=== PATIENT | female | born 1985 | race Caucasian/White ===

== ENCOUNTER 2018-11-22 14:09 | Inpatient (IN) | payer BC ==
[2018-11-22 16:49] LABS: Protime INR 1.31
[2018-11-22 16:58] LABS: Absolute Lymphocytes (CBC) 1.3 K/uL (0.7-4.9); Basophils % 0.4 % (0-1.3); Hematocrit 36.2 % (36.0-45.0); Lymphocytes % 8.5 % (15.3-44.8); MPV 7.6 fL (7.6-11.3); RBC Red Blood Cell Count 3.99 M/uL (3.86-4.86)
[2018-11-22 17:00] LABS: BUN Blood Urea Nitrogen 13 mg/dL (7-18); Bicarbonate 26 mmol/L (21-32); Glucose Level 93 mg/dL (74-106); Potassium 4.1 mmol/L (3.5-5.1); Sodium Level 139 mmol/L (136-145)
--- NOTE | 2018-11-22 17:48 | RAD REPORT ---
EXAM DESCRIPTION: CT - Abdomen Pelvis Wo Contrast - 11/22/2018 5:37 pm CLINICAL HISTORY: Abdominal pain. ABD PAIN COMPARISON: No comparisons TECHNIQUE: CT imaging of the abdomen and pelvis was performed without contrast. Solid organ, bowel a nd vascular assessment is limited due to lack of IV and oral contrast. All CT scans are performed using dose optimization technique as appropriate and may include automated exposure control or mA/KV adjustment according to patient size. FINDINGS: Calcified granuloma is present in the left lung base posteriorly. The liver, spleen, pancreas, adrenal glands and kidneys are within normal limits for a limited non-co ntrast examination. No bowel obstruction, free air, free fluid or abscess. Postsurgical changes are present in the anteri or floor abdominopelvic soft tissues. The appendix is not identified as a discrete structure, however , no secondary findings of appendicitis are identified. 6 cm left adnexal cyst is suspected.No free pelvic fluid. IMPRESSION: 6 cm left adnexal cyst noted. Evidence recent postoperative changes in the inferior anterior pelvic soft tissues. A limited non-contrast examination was performed as detailed.
[2018-11-22] MEDS ORDERED: HYDROCODONE/APAP 10/325 TAB ONE (17:59)
--- NOTE | 2018-11-22 18:29 | ER ---
Nurse's Notes [facility] Name: Ailyn Burgos Age: 32 yrs Sex: Female : 1985 Arrival Date: 11/22/2018 Time: 14:11 Bed 23 Private MD: Diagnosis: Post-op incsional pain, incisional abscess, abdominal pain Presentation: 11/22 14:15 Presenting complaint: Patient states: pt recently had surgery for endometriosis and sv started bleeding from site or vaginal area. Transition of care: patient was not received from another setting of care. Onset of symptoms was November 22, 2018. Care prior to arrival: None. 14:15 Method Of Arrival: Wheelchair sv 14:15 Acuity: FRANKIE 2 sv 14:34 Risk Assessment: Do you want to hurt yourself or someone else? Patient reports no tw2 desire to harm self or others. Initial Sepsis Screen: Does the patient meet any 2 criteria? HR > 90 bpm. Does the patient have a suspected source of infection? Yes: Skin breakdown/wound. 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 - Social history:: Smoking status: . - Ebola Screening: : Patient denies travel to an Ebola-affected area in the 21 days before illness onset. Screenin:34 Abuse screen: Denies threats or abuse. Nutritional screening: No deficits noted. tw2 Tuberculosis screening: No symptoms or risk factors identified. Fall Risk None identified. Assessment: 14:17 General: Appears uncomfortable, Behavior is calm, cooperative, appropriate for age. tw2 Pain: Complains of pain in umbilical area, right upper quadrant and left upper quadrant. Neuro: Level of Consciousness is awake, alert, obeys commands, Oriented to person, place, time, situation. Cardiovascular: Heart tones S1 S2 Patient's skin is warm and dry. Respiratory: Airway is patent Respiratory effort is even, unlabored, Respiratory pattern is regular, symmetrical, Breath sounds are clear bilaterally. GI: Abdomen is flat, Bowel sounds present X 4 quads. Reports pain and drainage near incision site. : No signs and/or symptoms were reported regarding the genitourinary system. EENT: No signs and/or symptoms were reported regarding the EENT system. Derm: Abscess located on umbilical area, right upper quadrant and left upper quadrant is approx 4x4 area of induration and erythema noted. has purulent drainage, is hot to touch, is red, is raised. Musculoskeletal: Range of motion: intact in all extremities. 15:30 Reassessment: Patient appears in no apparent distress at this time. No changes from tw2 previously documented assessment. Patient and/or family updated on plan of care and expected duration. Pain level reassessed. Patient is alert, oriented x 3, equal unlabored respirations, skin warm/dry/pink. 16:24 Reassessment: Patient appears in no apparent distress at this time. No changes from tw2 previously documented assessment. Patient and/or family updated on plan of care and expected duration. Pain level reassessed. Patient is alert, oriented x 3, equal unlabored respirations, skin warm/dry/pink. 17:28 Reassessment: Patient appears in no apparent distress at this time. No changes from tw2 previously documented assessment. Patient and/or family updated on plan of care and expected duration. Pain level reassessed. Patient is alert, oriented x 3, equal unlabored respirations, skin warm/dry/pink. 18:08 Reassessment: Patient appears in no apparent distress at this time. Patient and/or tw2 family updated on plan of care and expected duration. Pain level reassessed. Patient is alert, oriented x 3, equal unlabored respirations, skin warm/dry/pink. 19:30 General: Appears in no apparent distress. Behavior is calm, cooperative, appropriate ea for age. Pain: Complains of pain in umbilical area. Neuro: Level of Consciousness is awake, alert, obeys commands, Oriented to person, place, time, situation. Cardiovascular: Respiratory: Airway is patent Respiratory effort is even, unlabored, Respiratory pattern is regular, symmetrical. 20:19 Reassessment: Patient and/or family updated on plan of care and expected duration. Pain ea level reassessed. Patient is alert, oriented x 3, equal unlabored respirations, skin warm/dry/pink. Vital Signs: 14:16 BP 131 / 97; Pulse 104; Resp 18; Temp 98.5; Pulse Ox 100% ; sv 15:15 BP 107 / 86; Pulse 94; Resp 17; Pulse Ox 97% on R/A; tw2 16:24 BP 115 / 86; Pulse 94; Resp 17; Pulse Ox 97% on R/A; tw2 17:28 BP 124 / 87; Pulse 97; Resp 17; Pulse Ox 97% on R/A; tw2 18:15 BP 121 / 85; Pulse 89; Resp 17; Pulse Ox 99% on R/A; tw2 19:41 BP 125 / 80; Pulse 95; Resp 18; Pulse Ox 97% on R/A; ea 20:19 BP 120 / 94; Pulse 89; Resp 18; Pulse Ox 98% on R/A; ea ED Course: 14:11 Patient arrived in ED. rg4 14:15 Placed in gown. Bed in low position. Pulse ox on. NIBP on. tw2 14:16 Triage completed. sv 14:17 Arm band placed on. sv 14:24 Sujit Berry MD is Attending Physician. kdr 15:00 Kennedi Monterroso, RN is Primary Nurse. tw2 16:15 Missed attempt(s): 22 gauge in right antecubital area. per Josiah Harp. Bleeding tw2 controlled, band aid applied, catheter tip intact. Missed attempt(s): 22 gauge in right forearm. per Josiah Harp. Bleeding controlled, band aid applied, catheter tip intact. 16:23 Missed attempt(s): 22 gauge in left hand. Bleeding controlled, band aid applied, tw2 catheter tip intact. Missed attempt(s): 22 gauge in right hand. LAB notified of need for blood at this time.. Bleeding controlled, band aid applied, catheter tip intact. 17:55 Assist provider with I \T\ D: of an abscess on middle abdomen, copious amounts of tw2 purulent drainage noted, with small open wound in center of abdomen, erythema and induration noted to midabdomen. 18:25 Juan Pablo Mariee MD is Hospitalizing Provider. kdr 18:38 Ruthann Hsieh FNP-C is [facility]. snw 19:03 Report given to DEREK Bonilla and DEREK Carrillo. tw2 19:27 Primary Nurse role handed off by Kennedi Monterroso, DEREK tw2 19:30 Malissa Art, DEREK is Primary Nurse. ea 20:00 Patient admitted, IV remains in place. ea Administered Medications: 17:18 Not Given (no iv access at this time.): NS 0.9% 1000 ml IV at 1 bolus Per protocol; tw2 1000 mL bolus 18:00 Drug: [place] 10 mg-325 mg 1 tabs Route: PO; tw2 19:00 Follow up: Response: No adverse reaction ea 19:08 Drug: Clindamycin 900 mg Route: IVPB; Infused Over: 30 mins; Site: right antecubital; ea 20:00 Follow up: Response: No adverse reaction; IV Status: Completed infusion; IV Intake: 50mlea 19:10 Drug: Bactrim (160 mg-800 mg (DS) 1 tablet Route: PO; ea 20:00 Follow up: Response: No adverse reaction ea Intake: 20:00 IV: 50ml; Total: 50ml. ea Outcome: 18:27 Decision to Hospitalize by Provider. kdr 19:31 Instructed on the need for admit. ea 20:19 Admitted to ER Hold. [facility] for further documentation. ea 20:19 Condition: stable 11/23 08:00 Patient left the ED. sv Signatures: Suri Portillo RN RN sv Sujit Berry MD MD kdr Therrien, Shelly, SHIPPING TEAM LEADER-C SHIPPING TEAM LEADER-Csnw Kennedi Monterroso RN RN tw2 Pretty Reyes4 Malissa Art RN RN delvis Corrections: (The following items were deleted from the chart) 11/22 14:17 14:15 Acuity: FRANKIE 3 sv sv 16:27 16:23 Missed attempt(s): 22 gauge in right hand. Bleeding controlled, band aid applied, tw2 catheter tip intact. tw2
--- NOTE | 2018-11-22 18:30 | EDPHYS ---
Physician Documentation [facility] Name: Ailyn Burgos Age: 32 yrs Sex: Female : 1985 Arrival Date: 11/22/2018 Time: 14:11 Bed 23 Private MD: ED Physician Sujit Berry HPI: 11/22 18:31 This 32 yrs old Female presents to ER via Wheelchair with complaints of Post kdr Surgical Bleeding, Post Surgical Pain. 18:31 The patient had surgery for endometriosis and abdominal hernia about three weeks ago kdr and now has increased pain and bleeding from the midline incision in the suprapubic area. 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 - Social history:: Smoking status: . - Ebola Screening: : Patient denies travel to an Ebola-affected area in the 21 days before illness onset. ROS: 18:45 Constitutional: Negative for fever, chills, and weight loss, Eyes: Negative for injury, kdr pain, redness, and discharge, Neck: Negative for injury, pain, and swelling, Cardiovascular: Negative for chest pain, palpitations, and edema, Respiratory: Negative for shortness of breath, cough, wheezing, and pleuritic chest pain, Back: Negative for injury and pain, : Negative for injury, bleeding, discharge, and swelling, MS/Extremity: Negative for injury and deformity, Skin: Negative for injury, rash, and discoloration, Neuro: Negative for headache, weakness, numbness, tingling, and seizure activity. Psych: Negative for depression, anxiety, suicide ideation, homicidal ideation, and hallucinations, Allergy/Immunology: Negative for hives, rash, and allergies, Endocrine: Negative for neck swelling, polydipsia, polyuria, polyphagia, and marked weight changes, Hematologic/Lymphatic: Negative for swollen nodes, abnormal bleeding, and unusual bruising. 18:45 Abdomen/GI: Positive for abdominal pain, Negative for nausea and vomiting. Exam: 18:45 Constitutional: This is a well developed, well nourished patient who is awake, alert, kdr and in no acute distress. Head/Face: Normocephalic, atraumatic. Eyes: Pupils equal round and reactive to light, extra-ocular motions intact. Lids and lashes normal. Conjunctiva and sclera are non-icteric and not injected. Cornea within normal limits. Periorbital areas with no swelling, redness, or edema. Neck: Trachea midline, no thyromegaly or masses palpated, and no cervical lymphadenopathy. Supple, full range of motion without nuchal rigidity, or vertebral point tenderness. No Meningismus. Chest/axilla: Normal chest wall appearance and motion. Nontender with no deformity. No lesions are appreciated. Cardiovascular: Regular rate and rhythm with a normal S1 and S2. No gallops, murmurs, or rubs. Normal PMI, no JVD. No pulse deficits. Respiratory: Lungs have equal breath sounds bilaterally, clear to auscultation and percussion. No rales, rhonchi or wheezes noted. No increased work of breathing, no retractions or nasal flaring. Back: No spinal tenderness. No costovertebral tenderness. Full range of motion. Skin: Warm, dry with normal turgor. Normal color with no rashes, no lesions, and no evidence of cellulitis. MS/ Extremity: Pulses equal, no cyanosis. Neurovascular intact. Full, normal range of motion. Neuro: Awake and alert, GCS 15, oriented to person, place, time, and situation. Cranial nerves II-XII grossly intact. Motor strength 5/5 in all extremities. Sensory grossly intact. Cerebellar exam normal. Normal gait. Psych: Awake, alert, with orientation to person, place and time. Behavior, mood, and affect are within normal limits. 18:45 Abdomen/GI: Inspection: scar(s), are noted in the suprapubic area, Mildly draining wound to low abdomen. Vital Signs: 14:16 BP 131 / 97; Pulse 104; Resp 18; Temp 98.5; Pulse Ox 100% ; sv 15:15 BP 107 / 86; Pulse 94; Resp 17; Pulse Ox 97% on R/A; tw2 16:24 BP 115 / 86; Pulse 94; Resp 17; Pulse Ox 97% on R/A; tw2 17:28 BP 124 / 87; Pulse 97; Resp 17; Pulse Ox 97% on R/A; tw2 18:15 BP 121 / 85; Pulse 89; Resp 17; Pulse Ox 99% on R/A; tw2 19:41 BP 125 / 80; Pulse 95; Resp 18; Pulse Ox 97% on R/A; ea 20:19 BP 120 / 94; Pulse 89; Resp 18; Pulse Ox 98% on R/A; ea MDM: 18:27 Patient medically screened. kdr 18:45 Data reviewed: vital signs, nurses notes, lab test result(s), radiologic studies. kdr Counseling: I had a detailed discussion with the patient and/or guardian regarding: the historical points, exam findings, and any diagnostic results supporting the discharge/admit diagnosis, lab results, radiology results, the need for further work-up and treatment in the hospital. ED course: \R\ 100 cc+ of chocolate brown/purulent material spontaneously drained from the middle of the incision . 11/22 15:58 Order name: CBC with Diff [facility] 11/22 15:58 Order name: Chem 7 [facility] 11/22 15:58 Order name: PT-INR kdr 11/22 16:50 Order name: Protime (+INR); Complete Time: 18:00 EDMS 11/22 16:57 Order name: Basic Metabolic Panel; Complete Time: 18:00 EDMS 11/22 16:59 Order name: CBC with Automated Diff; Complete Time: 18:00 EDMS 11/22 15:58 Order name: CT Abd/Pelvis - IV Contrast Only [facility] 11/22 17:27 Order name: Wound Culture tw2 11/22 17:51 Order name: CT; Complete Time: 18:00 EDMS 11/23 06:06 Order name: Basic Metabolic Panel; Complete Time: 11:14 EDMS 11/23 06:06 Order name: NT PRO-BNP; Complete Time: 11:14 EDMS 11/23 06:19 Order name: CBC with Automated Diff; Complete Time: 11:14 EDMS Administered Medications: 17:18 Not Given (no iv access at this time.): NS 0.9% 1000 ml IV at 1 bolus Per protocol; tw2 1000 mL bolus 18:00 Drug: [place] 10 mg-325 mg 1 tabs Route: PO; tw2 19:00 Follow up: Response: No adverse reaction ea 19:08 Drug: Clindamycin 900 mg Route: IVPB; Infused Over: 30 mins; Site: right antecubital; ea 20:00 Follow up: Response: No adverse reaction; IV Status: Completed infusion; IV Intake: 50mlea 19:10 Drug: Bactrim (160 mg-800 mg (DS) 1 tablet Route: PO; ea 20:00 Follow up: Response: No adverse reaction ea Disposition: 11/22/18 18:27 Hospitalization ordered by Juan Pablo Mariee for Observation. Preliminary diagnosis is Post-op incsional pain, incisional abscess, abdominal pain. - Bed requested for Telemetry/MedSurg (observation). - Status is Observation. sv - Condition is Fair. - Problem is new. - Symptoms have improved. UTI on Admission? No Signatures: Dispatcher [employer] EDMS Suri Portillo, RN RN Sujit Arenas MD MD kdr Therrien, Shelly, ELEMENT WINDING MACHINE TENDER-C ELEMENT WINDING MACHINE TENDER-Csnw Samanta Robertson, RN RN Kennedi Coyle RN RN tw2 Malissa Art RN Reinaldo Crenshaw ea mw2 Corrections: (The following items were deleted from the chart) 22:12 18:27 Hospitalization Ordered by Juan Pablo Mariee MD for Observation. Preliminary diagnosis bb is Post-op incsional pain, incisional abscess, abdominal pain. Bed requested for Telemetry/MedSurg (observation). Status is Observation. Condition is Fair. Problem is new. Symptoms have improved. UTI on Admission? No. kdr 11/23 06:58 11/22 22:12 11/22/2018 18:27 Hospitalization Ordered by Juan Pablo Mariee MD for mw2 Observation. Preliminary diagnosis is Post-op incsional pain, incisional abscess, abdominal pain. Bed requested for [facility] ER HOLD. Status is Observation. Condition is Fair. Problem is new. Symptoms have improved. UTI on Admission? No. bb 11/23 08:00 06:58 11/22/2018 18:27 Hospitalization Ordered by Juan Pablo Mariee MD for Observation. sv Preliminary diagnosis is Post-op incsional pain, incisional abscess, abdominal pain. Bed requested for Telemetry/MedSurg (observation). Status is Observation. Condition is Fair. Problem is new. Symptoms have improved. UTI on Admission? No. mw2
[2018-11-22] MEDS ORDERED: SMZ./TMP. 800/160 MG TABLET ONE (18:51)
[2018-11-22] MEDS ORDERED: CLINDAMYCIN 900MG/D5W 900 MG/50 ML IVPB IV ONE (18:51)
--- NOTE | 2018-11-22 19:46 | P.HP ---
Certification for Inpatient With expected LOS: >2 Midnights Patient will require the following post-hospital care: None Practitioner: I am a practitioner with admitting privileges, knowledge of patient current condition, hospital course, and medical plan of care. Services: Services provided to patient in accordance with Admission requirements found in Title 42 Section 412.3 of the Code of Federal Regulations Patient History Date of Service: 11/22/18 Reason for admission: post surgical infection History of Present Illness: Pt had recent laparotomy for endometriosis and also repair of an abdominal hernia. Pt noted fever and chills, increasing pain to incision 3 days ago. Wound with small amount of dehiscence on initial exam in ED. Pt went to CT and wound opened more with expression of brownish and purulent exudate. Mild surrounding erythema also noted Allergies No Known Allergies Allergy (Verified 11/06/18 10:04) Home Medications: NK [No Home Meds] 11/06/18 - Past Medical/Surgical History Has patient received pneumonia vaccine in the past: No Diabetic: No -: hiradenitis suppurativa -: D & C 2013 -: section x2 -: T & A - Family History Mother -: Hypertension, Diabetes, Cancer - Social History Alcohol use: No CD- Drugs: No Caffeine use: Yes Review of Systems General: Fever, Chills, Malaise Eyes: Unremarkable ENT: Unremarkable Respiratory: Unremarkable Cardiovascular: Unremarkable Gastrointestinal: Abdominal Pain, As per HPI Genitourinary: Unremarkable Musculoskeletal: Unremarkable Integumentary: As per HPI Neurological: Unremarkable Lymphatics: Unremarkable Physical Examination - Vital Signs Temperature: 98.5 F Blood Pressure: 128/80 Pulse: 95 Respirations: 18 Pulse Ox (%): 97 - Physical Exam General: Alert, Oriented x3 HEENT: Atraumatic Neck: Supple Respiratory: Clear to auscultation bilaterally Cardiovascular: No edema, Normal pulses, Regular rate/rhythm Capillary refill: <2 Seconds Gastrointestinal: Normal bowel sounds, Tenderness (lower abd with dehiscence of surgical wound with moderate serosang dc, surrounding cellulitis) Musculoskeletal: No clubbing, No swelling Integumentary: Other (as noted) Neurological: Normal speech Lymphatics: No axilla or inguinal lymphadenopathy External genitalia: Deferred Rectal: Deferred - Studies Laboratory Data (last 24 hrs) 11/22/18 16:38: PT 15.3 H, INR 1.31 11/22/18 16:38: Sodium 139, Potassium 4.1, BUN 13, Creatinine 0.55, Glucose 93 11/22/18 16:38: WBC 14.8 H, Hgb 12.4, Hct 36.2, Plt Count 384 Assessment and Plan - Problems (Diagnosis) (1) Cellulitis Current Visit: Yes Status: Acute Qualifiers: Site of cellulitis: other site Qualified Code(s): L03.818 - Cellulitis of other sites (2) Wound dehiscence Current Visit: Yes Status: Acute Plan: Consult Dr. Harris and Dr. Quinones Discharge Plan: Home Plan to discharge in: 72 Hours - Advance Directives Does patient have a Living Will: No Does patient have a Durable POA for Healthcare: No
[2018-11-22] MEDS ORDERED: ACETAMINOPHEN 500 MG TAB PO PRN (21:57)
[2018-11-22] MEDS ORDERED: ALBUTEROL 2.5 MG/3 ML NEB SOL NEB PRN (21:57)
[2018-11-22] MEDS ORDERED: IPRATROPIUM BROM 0.5MG/2.5ML NEB PRN (21:57)
[2018-11-22] MEDS ORDERED: VANCOMYCIN 1 GM in NA CHLORIDE 0.9% 500 ML IVPB SCH (21:57)
[2018-11-22] MEDS ORDERED: VANCOMYCIN 1 GM/VIAL ONE (22:17)
[2018-11-22] MEDS ORDERED: CEFTRIAXONE/SWI 1gm 1 GM/10 ML SYR ONE (22:18)
[2018-11-22] MEDS ORDERED: NA CHLORIDE 0.9% 500 ML ONE (22:18)
[2018-11-22] MEDS: CEFTRIAXONE/SWI 1gm 1 GM/10 ML SYR IV SCH (22:51)
[2018-11-23 00:12] VITALS: BMI 35.0
[2018-11-23] MEDS ORDERED: VANCOMYCIN 750 MG in NA CHLORIDE 0.9% 150 ML IVPB ONE (00:30)
[2018-11-23] MEDS ORDERED: HYDROCODONE/APAP 5/325 MG TAB ONE (00:41)
[2018-11-23] MEDS ORDERED: VANCOMYCIN 1 GM/VIAL ONE (00:41)
[2018-11-23] MEDS ORDERED: NA CHLORIDE 0.9% 250 ML ONE (00:41)
[2018-11-23] MEDS: HYDROCODONE/APAP 5/325 MG TAB PO PRN ×3 (00:49→20:20)
[2018-11-23 06:05] LABS: BUN Blood Urea Nitrogen 12 mg/dL (7-18); Bicarbonate 25 mmol/L (21-32); Glucose Level 93 mg/dL (74-106); NT PRO-BNP 86 pg/mL (<125); Potassium 3.9 mmol/L (3.5-5.1); Sodium Level 140 mmol/L (136-145)
[2018-11-23 06:10] LABS: Absolute Lymphocytes (CBC) 1.4 K/uL (0.7-4.9); Basophils % 0.7 % (0-1.3); Hematocrit 32.5 % (36.0-45.0); Lymphocytes % 11.5 % (15.3-44.8); MPV 7.8 fL (7.6-11.3); RBC Red Blood Cell Count 3.57 M/uL (3.86-4.86)
[2018-11-23] MEDS: CEFTRIAXONE/SWI 1gm 1 GM/10 ML SYR IV SCH (08:56)
[2018-11-23] MEDS ORDERED: NA CHLORIDE 0.9% 1,000 ML IV SCH ×2 (09:00→12:00)
[2018-11-23] MEDS ORDERED: VANCOMYCIN 1.75 GM in NA CHLORIDE 0.9% 500 ML IVPB SCH (09:00)
[2018-11-23] MEDS ORDERED: Ringers Lactate 1,000 ML IV ONE (09:15)
[2018-11-23] MEDS ORDERED: NS 0.9% VIAL 10 ML ONE (09:19)
[2018-11-23] MEDS ORDERED: MIDAZOLAM HCL 2 MG/2 ML INJ ONE (09:19)
[2018-11-23] MEDS ORDERED: PROPOFOL 200 MG/20 ML VIAL IV ONE (09:19)
[2018-11-23] MEDS ORDERED: VECURONIUM 10 MG/VIAL IV ONE (09:19)
[2018-11-23] MEDS ORDERED: LIDOCAINE 1% MPF 5 ML VIAL ONE (09:19)
[2018-11-23] MEDS ORDERED: ROCURONIUM 50 MG/5 ML VIAL IV ONE (09:19)
[2018-11-23] MEDS ORDERED: FENTANYL CITR 250 MCG/5 ML ONE (09:19)
[2018-11-23] MEDS: VANCOMYCIN 1.75 GM in NA CHLORIDE 0.9% 500 ML IVPB SCH ×2 (10:15→22:04)
--- NOTE | 2018-11-23 10:19 | CON ---
Brief History Of Present Illness: Patient is a 32-year-old female known to me from previous contact. She was in the operating room with Dr. Olea on 11/10/2018 for endometrioma and see Dr. Harris's note for full details regarding the extent of her operation. Dr. Harris at that time requested at I help her with an abdominal wall closure as she had to remove a portion of the abdominal wall and as such requested my guidance. I was consulted intraoperatively at that time and assisted with the abdominal closure at that time. I assisted with this cyst with that time over the course of the past week or so, the patient discovered that she indeed had evidence of drainage from her wound and was c oncerned about an infection with cellulitic changes and came to the ER with the above-stated complain ts. She was seen in the ER and purulent fluid was expressed as such. She had fever and chills and i ncreasing pain over the past 3 days. There was a small amount of wound dehiscence at the level of th e skin. She had a CT and more purulent fluid was expressed at that time. Past Medical History: Significant for hidradenitis suppurativa, D and C in 2013, x2, T and A and the above stated surgery on 11/10/2018, approximately 2 weeks ago. Home Medications: None. Allergies: NONE. Social History: Alcohol denies. Smoking, alcohol, or recreational drug use. Review of Systems: A 10-point review of systems other than HPI, denies. Physical Examination: At the time of this examination. General: She is awake, alert, oriented. Psychiatric: She is appropriate and conversive. HEENT: She is normocephalic. Her sclerae anicteric . Mucous membranes are moist. She has poor dentition. Neck: Supple. No JVD. Chest: Normal expansion and excursion. Cardiovascular: Regular rate and rhythm. Pulmonary: Clear t o auscultation bilaterally. Abdomen: Soft with positive wound infection and cellulitis to the inferior postoperative o rientation wound. There are some purulent fluid expressed. Extremities: No clubbing, cyanosis, or edema. Laboratory Data: Reveals a white blood cell count of 12.4, hemoglobin is 11.2, hematocrit of 32.5. Neutrophils are 78%, platelets are 387. PT 15.3, INR 13.1. Sodium[QAMARKER], potassium 3.9, chlorid e 109, carbon dioxide 25, BUN 12, creatinine 0.6, glucose 93. She had imaging performed which includ ed a CT abdomen and pelvis on 11/22 which was officially read as 6 cm left adnexal cyst noted. Evide nce of recent postoperative changes to the inferior anterior pelvic soft tissues and limited noncontr ast CT was performed. Assessment And Plan: This is a 32-year-old female who comes in with a likely postoperative wound inf ection. Concern for postoperative wound, fascial dehiscence exists as the patient has an infected wo und. Therefore: 1.I recommend return to the operating room for wound exploration and irrigation and debridement as n ecessary. 2.Examination of the abdominal wall to ensure that there is no abdominal wall dehiscence contributin g to this as well. 3.Possible abdominal washout and primary closure with retention sutures and indicated procedures. I have explained the risks, benefits, alternatives the above stated plan, the patient agrees to procee d as indicated. MONY/ALONSO Voice ID: [id number] Report ID: [id number]
[2018-11-23] MEDS ORDERED: GLYCOPYRROLATE 0.2 MG/ML SYR ONE (10:27)
[2018-11-23] MEDS ORDERED: KETOROLAC 30 MG/ML INJ ONE (10:27)
[2018-11-23] MEDS ORDERED: NEOSTIGMINE 1 MG/ML -10 ML VIAL ONE (10:29)
[2018-11-23] MEDS ORDERED: ONDANSETRON 4 MG/2 ML VIAL ONE (10:29)
[2018-11-23] MEDS ORDERED: PROMETHAZINE 25 MG TABLET PO PRN (10:32)
--- NOTE | 2018-11-23 10:32 | P.OP ---
Preoperative diagnosis: Wound Infection / Dehiscence Postoperative diagnosis: Wound Infection / Dehiscence Primary procedure: Wound exploration and washout Anesthesia: GETA Estimated blood loss: <10cc Specimen: Cultures Sent Findings: No fascial dehiscence, wound infection with abscess Complications: None Transferred to: Recovery Room Condition: Good
[2018-11-23] MEDS: Ringers Lactate 1,000 ML IV SCH ×3 (11:00→22:04)
--- NOTE | 2018-11-23 13:40 | CON ---
Date of Consultation: 11/23/2018 History Of Present Illness: Patient is a 32-year-old status post abdominal wall endometriosis excision and laparoscopy on November 10. She is postop day #14 today. She had been seen for her first 1 week postop without any problems. Continued to have some pain at the site of the incision. She has been ambulating and doing a lot of physical activities briskly over the period of these last 2 weeks. She had called on Friday reporting that her pain is getting worse and that she needs more pain medication. The call was received after the office hours were done. She was asked to get rest, put her feet up and monitor her symptoms. There was no nausea, vomiting. She was tolerating her diet. No fevers or chills or any abnormal drainage from her incision. On Friday, I received a phone call in the afternoon that her incision is hurting , it is like stabbing pain. Still no nausea, vomiting, fevers, chills. No drainage. However, since the pain has gotten worse just to rule out wound infection, she was asked to go into the ER. After she was scanned in the ER I had received a call from Dr. Berry, we discussed about the patient's condition. The wound had opened and was draining purulent discharge and he had the report of the CAT scan which did not show any other acute intra abdominal process or fascial wound issues. So, plan was to give her IV antibiotics and admit her under the hospitalist this morning when the patient was seen by me. The wound that was opened almost [address] there was light pinkish discharge that was coming out in a large amount. No purulence was seen this morning. However, there was superficial skin erythema and induration all around the left lateral wound incision site. So, at this point, I was concerned about wound dehiscence besides a deep wound infection, so consult with Dr. Quinones and he saw the patient. Patient was taken to the OR to rule out a dehiscence and for wound debridement and irrigation. Please refer to his note for this. I assisted in the procedure as well. I went on to finish the irrigation packing process and then she is going to be placed on the floor. She was given Rocephin and vanco when she came in, but now her antibiotics, both of them have been discontinued, and we will start Zosyn 3.375 mg IV q.6. We will do monitoring of CBC daily and wound packing daily. Dr. Quinones was going to come back on Friday back in town and he can take care of the wound from there on. Possibility of a wound VAC application on Friday. Surgical History: x3 and recent laparotomy after laparoscopy for endometriosis in the abdominal wall at the left lateral side of her scar. The fascia was repaired primarily with help of nonabsorbable Prolene. She has no medical conditions. Allergies: NO ALLERGIES. Current Medications: No current drugs other than ibuprofen and Chehalis as needed. Social History: No tobacco, alcohol or drug use. Physical Examination: General: The patient's heart and lungs were clear. Patient is overweight. Abdomen: Soft, nondistended. Induration and erythema are seen. Extremities: Unremarkable. Assessment/plan: Deep wound infection. This was irrigated and cultured in the OR. No wound dehiscence was noted. So, she will stay on IV antibiotics, Zosyn q.6 hours for at least 48 hours, to monitor the white count to normalize and then oral antibiotics and home likely with a wound VAC and once a day daily dressing changes. Pain control with Chehalis 2 tablets q.6 hours p.r.n., ibuprofen 600 mg q.6 hours p.r.n. No other active problems with this patient. KEKE Voice ID: [id number] Report ID: [id number] MAGDA
--- NOTE | 2018-11-23 21:33 | OP ---
Date of Procedure: 11/23/2018 Surgeon: Tan Quinones MD, Preoperative Diagnosis: Wound infection/dehiscence. Postoperative Diagnosis: Wound infection/dehiscence. Procedure Performed: A wound exploration, washout. Anesthesia: General endotracheal. Estimated Blood Loss: Less than 2 mL. Specimens: Cultures sent for both aerobic and anaerobic speciation. Findings: No fascial dehiscence encountered. Wound infection with abscess was encountered and compl etely drained. Complications: None. Transferred to recovery room in good condition. Procedure In Detail: After informed consent was obtained, patient was brought to the operating room, prepped and draped in the usual sterile fashion. After adequate anesthesia was achieved, Dr. Corry singh and myself opened patient's previous incision from 11/10/2018. We immediately encountered an absc ess which was opened in its entirety, drained completely, and cultured at this time. The area was th en inspected and taken down to the abdominal wall. The fascia was palpated and inspected, which was found to be intact without any obvious evidence of fluid or evidence of fascial dehiscence. The area was copiously irrigated multiple times until completely clear. All necrotic tissue was debrided wit h a curette and sharp debridement. After this was completed, the cavity was completely irrigated wit h pulse lavage device until completely clear. Once again, the area was inspected. There was no evid ence of fascial dehiscence at that time. After all necrotic tissue was debrided, stitch was found to be grossly intact. The area was then packed with a Betadine-soaked damped dry gauze and sterile sandi ssing was placed over top. Patient tolerated the procedure well without evidence of complication and was transferred to the PACU in good condition. All counts were correct at the end of the case. Ple ase see Dr. Harris's note for further details. TK/MODL Voice ID: [id number] Report ID: [id number]
[2018-11-24 05:42] LABS: Absolute Lymphocytes (CBC) 1.6 K/uL (0.7-4.9); Basophils % 0.5 % (0-1.3); Hematocrit 31.2 % (36.0-45.0); Lymphocytes % 19.3 % (15.3-44.8); MPV 7.5 fL (7.6-11.3); RBC Red Blood Cell Count 3.42 M/uL (3.86-4.86)
[2018-11-24] MEDS: HYDROCODONE/APAP 5/325 MG TAB PO PRN ×2 (08:52→20:30)
[2018-11-24] MEDS: Ringers Lactate 1,000 ML IV SCH ×2 (08:52→20:31)
[2018-11-24] MEDS: VANCOMYCIN 1.75 GM in NA CHLORIDE 0.9% 500 ML IVPB SCH (08:53)
[2018-11-24] MEDS: IBUPROFEN 200 MG TAB PO PRN (10:54)
[2018-11-24] MEDS: PIPER/TAZO/NS 3.375gm 3.375 GM/100 ML BAG IV SCH (16:58)
--- NOTE | 2018-11-24 23:41 | P.PN ---
Subjective Date of Service: 11/24/18 Chief Complaint: post surgical infection Subjective: Tolerating diet, Ambulating, Improving (pain well controlled with oral meds, voids well, +Flatus) Review of Systems 10-point ROS is otherwise unremarkable Physical Examination - Vital Signs Temperature: 98.0 F Blood Pressure: 126/77 Pulse: 83 Respirations: 16 Pulse Ox (%): 95 - Physical Exam General: Alert, Oriented x3, Cooperative HEENT: Atraumatic Gastrointestinal: Normal bowel sounds, Non-distended, No rebound, Other ( significant decrease in erythema wound packing in place with some soiling of gown from the drainage) Musculoskeletal: No swelling, No tenderness - Studies WBC decreased from 14-12-8.5 today Microbiology Data (last 24 hrs): 11/22/18 17:52 Wound - Abdomen Gram Stain - Final Assessment & Plan - Problems (Diagnosis) (1) Wound infection after surgery Current Visit: Yes Status: Acute Plan: 1.Wound infection: POD 1s/p wound infection irrigation debridement decreasing WBC wound dressing change has been done with betadine packing per surgeon's recommendation norco 2 tabs given around 9am, ibuprofen later 600mg change done around 11am with assistance of the nurse irrigated with saline, intact fascia, pink wound surfaces pt phylicia this very well, assisted in holding the pannus up that helped her stay distracted as well as in control enquired if her grandmother can train to do this, informed that if this is deemed necessary later, we can let her do this at this time, wound needs a professional evaluation about it's progression. pt and grandmother understood this and grandmother and grandfather both stepped out wound culture with gm+cocci in clusters anerobic pending cont abx daily dressing changes ambulate in room binder ordered last pm, recommend using this pt c/o of pain most in the lateral aspect of the wound, site of her suture repair on the fascia/ rectus muscle reassured that this is c/w location and nature of repair ? nerve related possible as well Understood plan of care, questions answered Vanco stopped, changed to Zosyn around 1p after discussion with the pharmacist 2. pt concern over her care: I was notified at 845pm last night by floor charge nurse that I was getting an FYI about pt concerns over her care during the postop period. I was notified then that pt was going contact her animal care assistant in am which is today regarding concerns over her wound care and reasons for her wound infection. I was also notified that the hospital risk management was involved over this and the team had seen and talked to the patient. None of this was notified to me till late last night with the phone call mentioned above. When I talked to the patient, her nurse was in the room with me. Pt understood that infections could occur postop and after explaining that I have not deviated from any standard of care in attending to her complaints in a timely fashion, she had a very normal courteous conversation. During this entire discussion, she was not accusatory towards hers surgeons including me and Dr Quinones. She did not raise any concerns about hospital or anything else. i was not privy to the conversations conducted between hospital staff and patient at that time. Around 12 45 p today , after enquiry into the reasons why I was not notified when pt first voiced concerns about my care in this facility including facility concerns and why there was not an opportunity for the surgeon (myself) to address this before the administrators, I received detailed information about patient concerns. None of these specific complaints were ever brought to my notice. These will be addressed specifically further with the patient tomorrow at dressing change time. Pt recieved prophylactic antibiotics preop at her original surgery according to ACOG guidelines for laparotomy. As this was an elective case and did not involve any existing or recent infection in the site of surgery, there was no indication for postop antibiotics to be prescribed for patient use. Diligent use of antibiotics was done in her care. fascial closure was primary without use of any graft augmentation after extensive and complete excision of endometriosis. Assistance and consultation with an expert in closure of abdominal wall ie gen surgeon was appropriately used and patient was discharged home with instructions and pain meds and information needed about rest for what amounted to a hernia repair. My FIELD SALES SPECIALIST has seen her for 1wk postop visit. Clear documentation in my office chart indicates no signs of infection. Activity restrictions were reviewed with her since her POD 3 phone call to the office which was answered and documented in a timely fashion. She was clearly explained that non compliance with rest could lead to occurrence of a hernia. Binder use was stressed as well. Timely attendance to her call friday and friday documented and admission for wound care after ER visit dictated in chart. At all times, careful counseling was done and patient understood her procedures. Her non compliance with activity restrictions could have led to her pain but infection is another issue. This was communicated preop Friday morning with patient when I consented her in her room. Postop I talked to her grandparents that were the attendants available for review of op findings and future rest and wound care. Her grandmother mentioned how 'hard headed her grand daughter was and her lack of assistance with her kids which leads her to do more than what she should do and rest'. I informed them about the need for rest and they were going to see if her grandmother could stay back few weeks to help her get some rest. We had a good conversation at that point when I left them. Plan to discharge in: 48 Hours
[2018-11-25] MEDS: PIPER/TAZO/NS 3.375gm 3.375 GM/100 ML BAG IV SCH ×2 (00:20→08:09)
[2018-11-25] MEDS: Ringers Lactate 1,000 ML IV SCH ×5 (02:58→23:22)
[2018-11-25] MEDS: HYDROCODONE/APAP 5/325 MG TAB PO PRN ×3 (04:38→14:57)
--- NOTE | 2018-11-25 15:58 | P.PN ---
Subjective Date of Service: 11/25/18 Chief Complaint: post surgical infection Subjective: Improving (Patient feels much better, wound has minimal discomfort with dressing changes) Physical Examination - Vital Signs Temperature: 97.8 F Blood Pressure: 121/88 Pulse: 83 Respirations: 16 Pulse Ox (%): 95 - Physical Exam General: Alert, In no apparent distress, Cooperative Integumentary: Other (abdominal incision is healing well, cellulitis resolved, wound is clean and well packed) - Studies Microbiology Data (last 24 hrs): 11/22/18 17:52 Wound - Abdomen Gram Stain - Final 11/22/18 17:52 Wound - Abdomen Culture & Sensitivity - Final Staph Aureus Assessment And Plan - Plan s/p incision and drainage of abdominal wound infection - WVAC therapy being arranged at home, 3x per week - follow up in my clinic in 1 week for wound evaluation - bring WVAC supplies - antibiotics at home per Dr. Harris, recommend bactrim x 7 days @ this time - post op care per Dr. Harris
[2018-11-25] MEDS: SMZ./TMP. 800/160 MG TABLET PO SCH ×2 (16:00→17:14)
[2018-11-25] MEDS ORDERED: ALBUTEROL 2.5 MG/3 ML NEB SOL NEB PRN (17:00)
[2018-11-25] MEDS ORDERED: IPRATROPIUM BROM 0.5MG/2.5ML NEB PRN (17:00)
[2018-11-25] MEDS: IBUPROFEN 200 MG TAB PO PRN (17:14)
--- NOTE | 2018-11-25 17:26 | P.PN ---
Subjective Date of Service: 11/25/18 Chief Complaint: post surgical infection Subjective: No new changes, No C/O voiced, Tolerating diet, Ambulating, Improving Physical Examination - Vital Signs Temperature: 98.3 F Blood Pressure: 121/86 Pulse: 82 Respirations: 16 Pulse Ox (%): 96 - Physical Exam General: Alert, In no apparent distress Cardiovascular: Regular rate/rhythm, Normal S1 S2 Integumentary: Other (wound dressing removed, mod amt drainage, mostly orange in color due to the Betadine packing. Irriagted with 100c NS, then packed W/D with NS Kerlix. Tolerated well) - Studies Microbiology Data (last 24 hrs): 11/22/18 17:52 Wound - Abdomen Gram Stain - Final 11/22/18 17:52 Wound - Abdomen Culture & Sensitivity - Final Staph Aureus Assessment & Plan - Problems (Diagnosis) (1) Wound infection after surgery Current Visit: Yes Status: Acute Discharge Plan: Home Plan to discharge in: 24 Hours - Code Status/Comfort Care Code Status Assessed: Yes Code Status: Full Code Physician Review: Patient Assessed, Agree with Above Assessment and Plan Critical Care: No
[2018-11-26] MEDS: Ringers Lactate 1,000 ML IV SCH ×3 (03:00→11:00)
[2018-11-26] MEDS: SMZ./TMP. 800/160 MG TABLET PO SCH ×2 (08:12→20:45)
--- NOTE | 2018-11-26 10:21 | P.PN ---
Subjective Date of Service: 11/26/18 Chief Complaint: post surgical infection Subjective: Improving (Patient had WVAC applied, feels very well now) Physical Examination - Vital Signs Temperature: 97.2 F Blood Pressure: 135/78 Pulse: 66 Respirations: 15 Pulse Ox (%): 98 - Physical Exam General: Alert, In no apparent distress, Oriented x3 Integumentary: Other (WVAC in place, no erythema at site, effluent is clear) - Studies Microbiology Data (last 24 hrs): 11/22/18 17:52 Wound - Abdomen Gram Stain - Final 11/22/18 17:52 Wound - Abdomen Culture & Sensitivity - Final Staph Aureus Assessment And Plan - Plan s/p incision and drainage of abdominal wound infection - WVAC therapy being arranged at home, 3x per week - follow up in my clinic in 1 week for wound evaluation - bring WVAC supplies - antibiotics at home per Dr. Harris, recommend bactrim x 10 days @ this time - post op care per Dr. Harris Physician Review: Patient Assessed, Agree with Above Assessment and Plan
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
[2018-11-27] MEDS: SMZ./TMP. 800/160 MG TABLET PO SCH (09:13)
[2018-11-27 18:47] VITALS: BP 132/83; TEMP 98.2
[2018-11-27 19:41] VITALS: O2SAT 98
== END 2018-11-27 19:20 | disposition home health service (06) | DRG 863 ==
LOC: ER 14:09 → ERHOLD 20:34 → 2ND 11-23 07:15
PROVIDERS: ADMIT Family Medicine; ATTEND Surgery
PROC: 3E1M38Z Irrigation of Peritoneal Cavity using Irrigating Substance, Percutaneous Approach (ICD-10-PCS; 2018-11-23)
PROC: 0J9800Z Drainage of Abdomen Subcutaneous Tissue and Fascia with Drainage Device, Open Approach (ICD-10-PCS; principal; 2018-11-23 09:00)
DX: T81.41XA Infection following a procedure, superficial incisional surgical site, initial encounter (principal); L03.818 Cellulitis of other sites; B95.61 Methicillin susceptible Staphylococcus aureus infection as the cause of diseases classified elsewhere
CPT/HCPCS: 36415; 74176; 80048; 81025; 83880; 85025; 85610; 87070; 87075; 87077; 87186; 87205; 94760; 96365; 99251; 99285; J0696; J2250; J2405; J2543; J2704; J2710; J3010; J7030